=== PATIENT | female | born 1970 | race Asian ===

== ENCOUNTER 2021-09-13 22:08 | Inpatient (IN) | payer BC, OTHER ==
[~2021-09-13] VITALS: Ht 160 cm; Wt 65.3 kg
[2021-09-13] MEDS ORDERED: ACETAMINOPHEN 500 MG TAB PO ONE (22:45)
[2021-09-13 23:05] LABS: Basophils # (auto) 0.2 10 ^3/uL (0-0.2); Basophils % (auto) 1.6 % (0.0-2.0); Eosinophils # (auto) 0.1 10 ^3/uL (0-0.8); Eosinophils % (auto) 0.5 % (0.0-7.0); Hematocrit 29.2 % (36.0-46.0); Hemoglobin 9.5 g/dL (12.2-16.2); Lymphocytes # (auto) 1.3 10 ^3/uL (0.4-5.4); Lymphocytes % (auto) 11.1 % (10.0-50.0); Mean Corpuscular Hemoglobin 27.1 pg (28.0-32.0); Mean Corpuscular Hgb Conc. 32.7 g/dL (32.0-36.0); Mean Corpuscular Volume 83.1 fL (80.0-100.0); Monocytes # (auto) 0.8 10 ^3/uL (0-1.3); Neutrophils # (auto) 9.7 10 ^3/uL (1.6-8.6); Neutrophils % (auto) 79.8 % (37.0-80.0); Nucleated Red Blood Cells % 0.1 %; Red Blood Cells 3.52 10^6/uL (4.0-5.20); Red Cell Distribution Width 14.4 % (11.8-14.3); White Blood Cell 12.1 10^3/uL (4.4-10.8)
[2021-09-13 23:22] LABS: Albumin 2.4 g/dL (3.4-5.0); Calcium 8.5 mg/dL (8.5-10.1); Potassium 3.7 mmol/L (3.5-5.1)
[2021-09-13 23:25] LABS: Lactic Acid w/Reflex 2.4 mmol/L (0.4-2.0)
[2021-09-13 23:27] LABS: BUN/Creatinine Ratio 26.8; Bilirubin, Total 0.5 mg/dL (0.2-1.0); Total Protein 7.4 g/dL (6.4-8.2)
[2021-09-14] MEDS ORDERED: SODIUM CHLORIDE 0.9% 1,000 ML IV ONE (01:30)
[2021-09-14 01:38] LABS: Urine Bacteria NONE SEEN /hpf (None Seen); Urine Blood 1+ /uL (Negative); Urine Specific Gravity 1.017 (1.001-1.035); Urine WBC Clumps PRESENT /hpf (None Seen)
[2021-09-14] MEDS ORDERED: HYDROcodone-ACET 7.5/325MG TAB PO ONE (02:45)
[2021-09-14 07:05] LABS: Urine WBC 394 /hpf (0 - 5)
[2021-09-14] MEDS ORDERED: cefTRIAXone 1GM/50ML D5W 50 ML IV ONE (08:15)
[2021-09-14] MEDS ORDERED: ONDANSETRON HCL 4 MG/2 ML VIAL IV ONE (09:15)
[2021-09-14] MEDS ORDERED: MORPHINE SULFATE INJECTION 2 MG/ML SYRG IV PRN (10:15)
[2021-09-14] MEDS ORDERED: NITROGLYCERIN 0.4 MG SL TAB SL PRN (10:15)
[2021-09-14] MEDS ORDERED: methylPREDNISolone SOD SUCC 125 MG/2 ML VL IV ONE (11:15)
[2021-09-14] MEDS ORDERED: metroNIDAZOLE 500MG/100ML 100 ML IV ONE (12:30)
[2021-09-14] MEDS ORDERED: IPRATROPIUM BROM 0.5 MG/2.5ML INH SOL NEB ONE (12:30)
[2021-09-14] MEDS ORDERED: levoFLOXacin 250MG 50 ML IV ONE (12:30)
[2021-09-14] MEDS ORDERED: DOCUSATE SOD 100 MG CAP PO PRN (12:30)
[2021-09-14] MEDS ORDERED: FAMOTIDINE (10MG/ML) 2ML VL IV ONE (12:30)
[2021-09-14 13:00] VITALS: BP 151/61
[2021-09-14] MEDS ORDERED: hydrALAZINE HCL 20 MG/ML VL IV PRN (13:00)
[2021-09-14] MEDS ORDERED: ACETYLCYSTEINE 10 %(100MG/ML) SOL 4ML NEB SCH (14:00)
[2021-09-14] MEDS: IPRATROPIUM BROM 0.5 MG/2.5ML INH SOL NEB SCH ×3 (14:00→22:26)
[2021-09-14] MEDS: HYDROmorphone HCL 2 MG/ML VL IV PRN ×3 (14:42→21:44)
[2021-09-14 14:47] LABS: Amphetamine Screen, Urine NEGATIVE (NEGATIVE); Barbiturate Scree,Urine NEGATIVE (NEGATIVE); Benzodiazephine Screen, Urine NEGATIVE (NEGATIVE); Cannabinoid Screen, Urine NEGATIVE (NEGATIVE); Cocaine Screen, Urine NEGATIVE (NEGATIVE); Opiate Scree,Urine NEGATIVE (NEGATIVE); Phencyclidine Screen, Urine NEGATIVE (NEGATIVE)
[2021-09-14] MEDS: ONDANSETRON HCL 4 MG/2 ML VIAL IV PRN ×3 (14:56→21:45)
[2021-09-14 16:33] LABS: % Iron Saturation 7.5 % (15-50); Phosphorus 2.7 mg/dL (2.5-4.90)
[2021-09-14 16:42] LABS: INR 1.09 (0.9-1.15); Partial Thromboplastin Time 28.9 sec (23.6-33.0)
[2021-09-14 17:06] VITALS: BP 155/64
[2021-09-14] MEDS: DOXYCYCLINE 100MG/250ML 250 ML IV SCH (17:45)
[2021-09-14] MEDS: ALBUTEROL SULF 2.5 MG/0.5ML(0.5%) NEB SOLN NEB PRN ×2 (18:01→22:15)
[2021-09-14 20:00] VITALS: BP 138/69
[2021-09-14] MEDS ORDERED: metroNIDAZOLE 500MG/100ML 100 ML IV SCH (20:00)
[2021-09-14 22:00] VITALS: BP 138/69
[2021-09-14] MEDS: methylPREDNISolone SOD SUCC 40 MG/ML VL IV SCH (22:00)
[2021-09-14] MEDS: ACETYLCYSTEINE 10 %(100MG/ML) SOL 4ML NEB SCH (22:15)
[2021-09-14] MEDS: SODIUM CHLORIDE 0.9% 1,000 ML IV SCH (23:45)
[2021-09-15 05:00] VITALS: BP 143/81
[2021-09-15] MEDS: SODIUM CHLORIDE 0.9% 1,000 ML IV SCH ×2 (05:10→21:50)
[2021-09-15] MEDS: DOXYCYCLINE 100MG/250ML 250 ML IV SCH ×2 (05:45→17:20)
[2021-09-15] MEDS: methylPREDNISolone SOD SUCC 40 MG/ML VL IV SCH ×3 (06:00→22:00)
[2021-09-15] MEDS: ACETYLCYSTEINE 10 %(100MG/ML) SOL 4ML NEB SCH ×3 (06:32→21:29)
[2021-09-15] MEDS: IPRATROPIUM BROM 0.5 MG/2.5ML INH SOL NEB SCH ×3 (06:32→21:29)
[2021-09-15] MEDS: ALBUTEROL SULF 2.5 MG/0.5ML(0.5%) NEB SOLN NEB PRN ×3 (06:32→21:29)
[2021-09-15 07:01] LABS: INR 1.09 (0.9-1.15); Partial Thromboplastin Time 29.7 sec (23.6-33.0)
[2021-09-15 07:13] LABS: Folate (Folic Acid) 11.29 ng/mL (5.38-24)
[2021-09-15 07:26] LABS: Potassium 4.2 mmol/L (3.5-5.1)
[2021-09-15 07:30] LABS: Basophils # (auto) 0 10 ^3/uL (0-0.2); Basophils % (auto) 0.2 % (0.0-2.0); Eosinophils # (auto) 0 10 ^3/uL (0-0.8); Hemoglobin 8.7 g/dL (12.2-16.2); Lymphocytes # (auto) 0.8 10 ^3/uL (0.4-5.4); Monocytes # (auto) 0.1 10 ^3/uL (0-1.3); Neutrophils # (auto) 8.5 10 ^3/uL (1.6-8.6); Neutrophils % (auto) 90.6 % (37.0-80.0); White Blood Cell 9.4 10^3/uL (4.4-10.8)
[2021-09-15 07:32] LABS: Hematocrit 27.6 % (36.0-46.0); Lymphocytes % (auto) 8.5 % (10.0-50.0); Mean Corpuscular Hemoglobin 26.9 pg (28.0-32.0); Mean Corpuscular Hgb Conc. 31.3 g/dL (32.0-36.0); Mean Corpuscular Volume 85.8 fL (80.0-100.0); Monocytes % (auto) 0.7 % (0.0-12.0); Red Blood Cells 3.22 10^6/uL (4.0-5.20); Red Cell Distribution Width 14.7 % (11.8-14.3)
[2021-09-15 07:38] LABS: Albumin 2.2 g/dL (3.4-5.0); BUN/Creatinine Ratio 24.3; Bilirubin, Total 0.4 mg/dL (0.2-1.0); Calcium 8.8 mg/dL (8.5-10.1); Magnesium 3.6 mg/dL (1.6-2.6); Total Protein 7.3 g/dL (6.4-8.2); Uric Acid 14.3 mg/dL (2.6-6.0)
[2021-09-15 09:00] VITALS: BP 130/68
[2021-09-15] MEDS: cefTRIAXone 1GM/50ML D5W 50 ML IV SCH (09:41)
[2021-09-15] MEDS ORDERED: levoFLOXacin 250MG 50 ML IV SCH (10:00)
[2021-09-15] MEDS ORDERED: ENOXAPARIN SOD 30 MG/0.3 ML SYRINGE SC SCH (10:00)
[2021-09-15] MEDS ORDERED: FAMOTIDINE (10MG/ML) 2ML VL IV SCH (10:00)
[2021-09-15] MEDS ORDERED: LACTULOSE 20Gm/30ML SOLN PO ONE (12:15)
[2021-09-15 13:05] VITALS: BP 144/74
[2021-09-15 17:00] VITALS: BP 126/64
[2021-09-15 17:38] LABS: % Iron Saturation 26.2 % (15-50)
[2021-09-15 17:46] LABS: Ferritin 687.8 ng/mL (10-322)
[2021-09-15 20:00] VITALS: BP 141/78
[2021-09-16 05:00] VITALS: BP 167/84
[2021-09-16] MEDS: ONDANSETRON HCL 4 MG/2 ML VIAL IV PRN ×2 (05:40→09:33)
[2021-09-16] MEDS: methylPREDNISolone SOD SUCC 40 MG/ML VL IV SCH (05:40)
[2021-09-16] MEDS: HYDROmorphone HCL 2 MG/ML VL IV PRN ×3 (05:40→14:26)
[2021-09-16] MEDS: DOXYCYCLINE 100MG/250ML 250 ML IV SCH ×2 (05:41→16:50)
[2021-09-16] MEDS: IPRATROPIUM BROM 0.5 MG/2.5ML INH SOL NEB SCH ×3 (08:59→21:49)
[2021-09-16 09:00] VITALS: BP_SYST 150; BP_SYST 190; BP_DIAS 90; BP_DIAS 92
[2021-09-16] MEDS: ACETYLCYSTEINE 10 %(100MG/ML) SOL 4ML NEB SCH ×3 (09:00→21:50)
[2021-09-16] MEDS: cefTRIAXone 1GM/50ML D5W 50 ML IV SCH (09:29)
[2021-09-16] MEDS: ENOXAPARIN SOD 40 MG/0.4 ML SYRINGE SC SCH (09:30)
[2021-09-16 13:00] VITALS: BP 152/81
[2021-09-16] MEDS: FERROUS SULFATE 325mg EC TAB PO SCH (13:04)
[2021-09-16 17:00] VITALS: BP 119/57
[2021-09-16 20:00] VITALS: BP 111/56
[2021-09-16] MEDS: ALBUTEROL SULF 2.5 MG/0.5ML(0.5%) NEB SOLN NEB PRN (21:49)
[2021-09-16 22:00] VITALS: BP 147/80
[2021-09-17] MEDS: DOXYCYCLINE 100MG/250ML 250 ML IV SCH (04:47)
[2021-09-17 05:00] VITALS: BP 135/69
[2021-09-17] MEDS: ONDANSETRON HCL 4 MG/2 ML VIAL IV PRN (06:44)
[2021-09-17] MEDS: HYDROmorphone HCL 2 MG/ML VL IV PRN (06:45)
[2021-09-17] MEDS: ALBUTEROL SULF 2.5 MG/0.5ML(0.5%) NEB SOLN NEB PRN ×2 (08:07→18:30)
[2021-09-17] MEDS: IPRATROPIUM BROM 0.5 MG/2.5ML INH SOL NEB SCH ×3 (08:07→18:31)
[2021-09-17 08:30] VITALS: BP 162/80
[2021-09-17] MEDS ORDERED: PRED20TA2 PO (08:55)
[2021-09-17] MEDS ORDERED: LEVO500T31 PO (08:55)
[2021-09-17] MEDS ORDERED: ONDA-144 PO (08:55)
[2021-09-17] MEDS ORDERED: [UNRECOGNIZED DRUG - CODE] IJ (08:55)
[2021-09-17] MEDS: cefTRIAXone 1GM/50ML D5W 50 ML IV SCH (09:32)
[2021-09-17] MEDS: ENOXAPARIN SOD 40 MG/0.4 ML SYRINGE SC SCH (09:33)
[2021-09-17] MEDS ORDERED: predniSONE 20 MG TAB PO SCH (10:00)
[2021-09-17] MEDS: FERROUS SULFATE 325mg EC TAB PO SCH (12:40)
[2021-09-17] MEDS ORDERED: HYDR2TAB58 PO (14:00)
== END 2021-09-17 14:55 | disposition home or self-care (01) | DRG 871 ==
LOC: EDBD 22:08 → ER 22:12 → OVERFLOW 09-14 10:10 → CENTRAL 09-14 12:31
PROVIDERS: ADMIT Hospitalist; ATTEND Family Medicine
DX: A41.9 Sepsis, unspecified organism (principal); J18.9 Pneumonia, unspecified organism; I21.4 Non-ST elevation (NSTEMI) myocardial infarction; E43 Unspecified severe protein-calorie malnutrition; J96.21 Acute and chronic respiratory failure with hypoxia; N39.0 Urinary tract infection, site not specified; N17.9 Acute kidney failure, unspecified; N18.32 Chronic kidney disease, stage 3b; D64.9 Anemia, unspecified; B96.1 Klebsiella pneumoniae [K. pneumoniae] as the cause of diseases classified elsewhere; E86.0 Dehydration; G89.3 Neoplasm related pain (acute) (chronic); Z20.822 Contact with and (suspected) exposure to COVID-19; M54.50 Low back pain, unspecified; E11.22 Type 2 diabetes mellitus with diabetic chronic kidney disease; Z80.42 Family history of malignant neoplasm of prostate; Z82.5 Family history of asthma and other chronic lower respiratory diseases; Z85.118 Personal history of other malignant neoplasm of bronchus and lung; Z85.3 Personal history of malignant neoplasm of breast; Z90.13 Acquired absence of bilateral breasts and nipples; Z92.21 Personal history of antineoplastic chemotherapy; Z88.6 Allergy status to analgesic agent; Z92.3 Personal history of irradiation; Z68.25 Body mass index [BMI] 25.0-25.9, adult
CPT/HCPCS: 36415; 71045; 71250; 74176; 80053; 80061; 80307; 81001; 82306; 82607; 82728; 82746; 83036; 83540; 83550; 83605; 83615; 83735; 83880; 84100; 84443; 84484; 84550; 85025; 85045; 85379; 85610; 85730; 86880; 87040; 87086; 87088; 87186; 87205; 87426; 93005; 94640; 96360; G0378; J0696; J2405; J3490